=== PATIENT | male | born 1940 | race Caucasian/White ===

== ENCOUNTER → 2016-09-29 | Outpatient (CLI) | payer OTHER, BC ==
--- NOTE | 2016-09-29 13:27 | DI ---
XR CXR 2VW PA/LAT,09/29/2016 9:44 AM: Clinical History: Wheezing Previous Exam: None at this facility. Findings: PA and lateral views of the chest are obtained, and demonstrate metallic density within the soft tiss ues of the left lateral chest wall. Impression: No acute disease.
== END ==
LOC: MOB RAD 09:48
PROVIDERS: ATTEND Internal Medicine
DX: R06.2 Wheezing (principal); J44.9 Chronic obstructive pulmonary disease, unspecified; F17.220 Nicotine dependence, chewing tobacco, uncomplicated
CPT/HCPCS: 69209; 69210; 71020; 99214